=== PATIENT | female | born 1975 | race Caucasian/White ===

== ENCOUNTER 2021-03-05 08:23 | Day surgery (SDC) | payer OTHER ==
[~2021-03-05] VITALS: Ht 160 cm; Wt 61.7 kg
[~2021-03-05 08:23] MED LIST: HYDHCL25 PO
[2021-03-05] MEDS ORDERED: MULTIPLE VITAM1 EACH PO (08:40)
[2021-03-05] MEDS ORDERED: IRON PO (08:40)
[2021-03-05] MEDS ORDERED: ASCORBIC ACID500 MG PO (08:41)
[2021-03-05] MEDS ORDERED: GLUCOSAMINE CH1 EACH PO (08:42)
[2021-03-05] MEDS ORDERED: DHEA 10 MG TAB1 EACH PO (08:42)
[2021-03-05] MEDS ORDERED: VITAMIN D325 MC3 PO (08:43)
--- NOTE | 2021-03-05 12:37 | NUR ---
PT ARRIVED TO UNIT FROM PACU SCOOTED INDEPENDENTLY FROM GURNEY TO BED. LAP INCISIONS TO ABD X3 CDI, SECURED W/STERI STRIPS. SCANT AMT DRAINAGE ON IVAN PAD. DC'D SOTO CATH PER ORDERS. PT REPORTS PAIN TOLERABLE AT THIS TIME, RATING 4/10. PLACED KPAD TO BACK PER PT REQUEST. PT TAKING SIPS WATER. CALL LIGHT IN REACH.
[2021-03-05] MEDS ORDERED: HYDMOR2 PO (15:40)
[2021-03-05] MEDS ORDERED: CELE200 PO (15:40)
[2021-03-05] MEDS ORDERED: ONDA4ODT MM (15:41)
--- NOTE | 2021-03-05 19:22 | NUR ---
discharged REVIEWED DC INSTRUCTIONS W/PT; VERBALIZED UNDERSTANDING. DC'D IV, CATHETER INTACT. PT LEFT UNIT IN WC W/POSSESSIONS AND DC PAPERWORK IN HAND, ACCOMPANIED BY S.O.
--- NOTE | 2021-03-08 10:46 | NUR ---
03/08/21 1046 Kristen Benz VERIFICATIONS: EDIT CHART.
== END 2021-03-05 19:15 | disposition home or self-care (01) ==
LOC: ORSCMMR 08:23 → ORD 10:30 → SURS 12:05 → ORSCMMR 19:15
PROVIDERS: Obstetrics & Gynecology
PROC: 0UT7FZZ Resection of Bilateral Fallopian Tubes, Via Natural or Artificial Opening With Percutaneous Endoscopic Assistance (ICD-10-PCS; principal; 2021-03-05 10:30)
PROC: 0UT1FZZ Resection of Left Ovary, Via Natural or Artificial Opening With Percutaneous Endoscopic Assistance (ICD-10-PCS; principal; 2021-03-05 10:30)
PROC: 0UT9FZZ Resection of Uterus, Via Natural or Artificial Opening With Percutaneous Endoscopic Assistance (ICD-10-PCS; principal; 2021-03-05 10:30)
DX: D25.9 Leiomyoma of uterus, unspecified (principal); N92.0 Excessive and frequent menstruation with regular cycle; N80.0 Endometriosis of uterus; N83.12 Corpus luteum cyst of left ovary; N94.89 Other specified conditions associated with female genital organs and menstrual cycle; Z87.891 Personal history of nicotine dependence
CPT/HCPCS: 88307; A9270; J0171; J0690; J1100; J1885; J2250; J2370; J2405; J2704; J2710; J3010; J7120